=== PATIENT | female | born 1970 | race Caucasian/White ===

== ENCOUNTER → 2019-03-02 12:22 | Outpatient (CLI) | payer OTHER, SELFPAY ==
--- NOTE | 2019-03-02 | DI.RAD.S_ITS ---
PROCEDURE: FL BARIUM SWALLOW INDICATIONS: Gastro-esophageal reflux disease without esophagit COMPARISON: None. FINDINGS: Function: There is slightly delayed esophageal peristalsis. No elicited gastroesophageal reflux. Morphology: Air-contrast images demonstrate normal mucosal morphology. Single contrast views show no esophageal strictures, extrinsic mass effects, or diverticula. Limited images of the stomach demonstrate normal appearance. IMPRESSION: Minimal dysmotility otherwise grossly unremarkable examination as above Dictated by: Dmitriy Castro M.D. on 03/02/2019 at 13:23 Approved by: Dmitriy Castro M.D. on 03/02/2019 at 13:24
== END ==
PROVIDERS: Visit Provider Surgery
DX: K21.9 Gastro-esophageal reflux disease without esophagitis (principal)
CPT/HCPCS: 74220

== ENCOUNTER 2021-11-13 18:24 | Emergency (ER) | payer OTHER, SELFPAY ==
[2021-11-13 18:32] VITALS: BP 132/79; PULSE 78; RESP 18; TEMP 36.2; O2SAT 99; BMI 35.2
--- NOTE | 2021-11-13 21:31 | ED.BACK ---
HPI - Back Pain/Injury General Chief Complaint: Back Pain/Injury Stated Complaint: Severe back pain Time Seen by Provider: 11/13/21 21:15 Source: patient Mode of arrival: Ambulatory History of Present Illness HPI Narrative: Patient is a 51-year-old female who is here for evaluation of right lower back/buttock discomfort. Has been going on for the past 2-3 days. There was not 1 specific incident that caused the discomfort however she states that she was bending over at home around some furniture when she stood up she started to have a small twinge in her back. Has progressively worsened since then. Has not fallen. Does radiate around to the front of her right leg. No urinary symptoms. No change in bowel habits. No skin changes. She has had a gastric bypass in the past so cannot take anti-inflammatories. Related Data Home Medications Medication Instructions Recorded Confirmed albuterol sulfate 90 mcg/actuation 1 puff INH PRN ##0 07/27/12 aerosol inhaler (Proventil HFA) metformin 500 mg tablet 500 mg PO BIDCC ##0 07/27/12 (Glucophage) ropinirole 1 mg tablet (Requip) 1 mg PO HS ##0 07/27/12 zolpidem 10 mg tablet (Ambien) 10 mg PO HS ##0 07/27/12 Lisinopril/HCTZ (#PRINZIDE OFF 1 tab PO QDAY ##0 08/24/12 MARKET) methylphenidate HCl 10 mg tablet 10 mg PO BID ##0 08/24/12 (Ritalin) Previous Rx's Medication Instructions Recorded cyclobenzaprine 10 mg tablet 10 mg PO TID PRN muscle spasm #10 11/13/21 tabs hydrocodone 5 mg-acetaminophen 325 1 tab PO Q4-6H PRN pain #7 tabs 11/13/21 mg tablet Allergies Allergy/AdvReac Type Severity Reaction Status Date / Time NKDA - NO KNOWN DRUG Allergy Unknown Uncoded 09/07/17 12:24 ALLERGIES TAPE Allergy Unknown ITCHING Uncoded 09/07/17 12:24 Review of Systems Constitutional Constitutional: Reports system reviewed and no additional complaints, except as documented Musculoskeletal Musculoskeletal: Reports system reviewed and no additional complaints, except as documented Integumentary/Breasts Skin/Breast: Reports system reviewed and no additional complaints, except as documented Neurologic Neurologic: Reports system reviewed and no additional complaints, except as documented Hematologic/Lymphatic On Anticoagulants: No Patient History Medical History Fibromyalgia Social History Smoking Status: Never smoker Smoking Status: Never smoker alcohol intake frequency: a few times a month Substance Use Type: marijuana Exam Initial Vital Signs Initial Vital Signs: Vital Signs Temperature 97.2 F L 11/13/21 18:32 Pulse Rate 78 11/13/21 18:32 Respiratory Rate 18 11/13/21 18:32 Blood Pressure 132/79 11/13/21 18:32 Pulse Oximetry 99 11/13/21 18:32 Oxygen Delivery Method 11/13/21 18:32 Const General: cooperative and comfortable HENMT Head: normal to inspection and normocephalic Resp Effort & Inspection: normal respiratory effort Cardio Rate: regular rate GI Inspection: normal to inspection Back/Spine/Pelvis Other: No specific tenderness to palpation in the right SI joint or right lower lumbar region however this is the area where she is having discomfort. Skin General: no rashes or lesions noted Neuro General: patient alert, patient awake, patient oriented x3 and moves all extremities Extrem General: normal to inspection and capillary refill normal Psych Appearance: grossly normal and well kempt Course Orders Ordered: Discontinued Medications Hydrocodone Bitart/Acetaminophen (Hydrocodone/Acet 5/325 Tablet) 1 tab PO NOW ONE Stop: 11/13/21 21:33 Last Admin: 11/13/21 21:41 Dose: 1 tab Documented By: ERICK Hydrocodone Bitart/Acetaminophen (Hydrocodone/Acet 5/325 Prepack) 1 bottle MISC SEEINSTR ONE Stop: 11/13/21 21:33 Last Admin: 11/13/21 21:40 Dose: 1 bottle Documented By: ERICK Ketorolac Tromethamine (Ketorolac 30 Mg/Ml Vial) 30 mg IM NOW ONE Stop: 11/13/21 21:33 Last Admin: 11/13/21 21:41 Dose: 30 mg Documented By: ERICK Vital Signs Vital signs: Vital Signs - 8 hr 11/13/21 18:32 11/13/21 22:00 Temperature 97.2 F L Pulse Rate 78 74 Respiratory Rate 18 18 Blood Pressure 132/79 123/77 Pulse Oximetry 99 100 Oxygen Delivery Method Room Air Room Air MDM - Back Pain/Injury MDM Narrative Medical decision making narrative: Patient does have right lower back/right SI joint discomfort. Afebrile. No urinary symptoms or change in bowel habits. No specific trauma. No indication for any radiologic studies. I do suspect muscular injury. Was sent home with symptom treatment. She was given return precautions. Low suspicion for cauda equina nor fracture or hematoma. She expressed understanding and agreement plan. Discharge Plan Departure Patient Disposition: Home Clinical Impression: Strain of lumbar region Instructions: DI for Low Back Pain Activity Restrictions/Additional Instructions: I do recommend that she stay as active as possible. You can also continue with the conservative measures such as chiropractic visits, heat, ice, Tylenol and light massage and stretching. Use the medications that you were given a prescription for as needed. Contact your primary doctor for a follow-up. Prescriptions: New hydrocodone-acetaminophen 5-325 mg tablet 1 tab PO Q4-6H PRN (Reason: pain) Qty: 7 0RF cyclobenzaprine 10 mg tablet 10 mg PO TID PRN (Reason: muscle spasm) Qty: 10 0RF No Action metformin [Glucophage] 500 MG tablet 500 mg PO BIDCC Qty: 0 ropinirole [Requip] 1 MG tablet 1 mg PO HS Qty: 0 zolpidem [Ambien] 10 MG tablet 10 mg PO HS Qty: 0 albuterol sulfate [Proventil HFA] 90 MCG/PUFF HFA aerosol inhaler 1 puff INH PRN Qty: 0 methylphenidate HCl [Ritalin] 10 MG tablet 10 mg PO BID Qty: 0 Lisinopril/HCTZ (#PRINZIDE OFF MARKET) 1 tab PO QDAY Qty: 0 Referrals: Mickie Chakraborty PA-C [Primary Care Provider] - Visit Report Forms: Patient Portal/API
[2021-11-13] MEDS: HYDROCODONE/ACET 5/325 PREPACK 1 BOTTLE MISC (21:40)
[2021-11-13] MEDS: KETOROLAC 30 MG/ML VIAL IM (21:41)
[2021-11-13] MEDS: HYDROCODONE/ACET 5/325 TABLET 1 TAB PO (21:41)
[2021-11-13 22:00] VITALS: BP 123/77; PULSE 74; RESP 18; O2SAT 100
== END 2021-11-13 22:03 | disposition home or self-care (01) ==
PROVIDERS: Emergency Provider Emergency Medicine; PCP Physician Assistant
DX: S39.012A Strain of muscle, fascia and tendon of lower back, initial encounter (principal)
CPT/HCPCS: 96372; 99283; J1885